=== PATIENT | female | born 1990 | race Caucasian/White ===

== ENCOUNTER 2017-08-19 23:44 | Emergency (ER) | payer OTHER ==
[2017-08-20 00:01] VITALS: BP 98/61; PULSE 76; RESP 14; TEMP 98.5; O2SAT 97
--- NOTE | 2017-08-20 00:42 | C.PDOC ---
History Of Present Illness 27 year old female who is 16 weeks presents to the ER with a complaint of intermittent left lower gum pain for the past 3 days. Patient did not take any pain medication at home since she is unsure which medications are safe for the . Denies gum bleeding or gum discharge. Time Seen by Provider: 08/20/17 00:20 Chief Complaint (Nursing): Dental Pain History Per: Patient History/Exam Limitations: no limitations Onset/Duration Of Symptoms: Days Current Symptoms Are (Timing): Still Present Recent travel outside of the [place]: No Past Medical History Reviewed: Historical Data, Nursing Documentation, Vital Signs Vital Signs: Last Vital Signs Temp 98.5 F 08/19/17 23:58 Pulse 76 08/19/17 23:58 Resp 14 08/19/17 23:58 BP 98/61 L 08/19/17 23:58 Pulse Ox 97 08/20/17 00:43 - Medical History PMH: No Chronic Diseases Surgical History: No Surg Hx Family History: States: Unknown Family Hx - Social History Hx Alcohol Use: No Hx Substance Use: No - Immunization History Hx Tetanus Toxoid Vaccination: No Hx Influenza Vaccination: No Hx Pneumococcal Vaccination: No Review Of Systems Constitutional: Negative for: Fever, Chills ENT: Positive for: Mouth Pain. Negative for: Mouth Swelling, Throat Pain, Throat Swelling Physical Exam - Physical Exam Appears: Non-toxic, No Acute Distress Skin: Normal Color, Warm, Dry Head: Atraumatic, Normacephalic Oral Mucosa: Moist Lips: Normal Appearing Teeth: Other (Impacted left lower posterior molar with caries) Gingiva: No Erythema, No Ulceration, Swelling (Mild around left lower posterior molar), No Bleeding Throat: Normal, No Erythema Neck: Normal, Supple Neurological/Psych: Oriented x3, Normal Speech, Normal Cognition ED Course And Treatment O2 Sat by Pulse Oximetry: 97 (Room air) Pulse Ox Interpretation: Normal Progress Note: Tylenol administered. First dose of amoxicillin administered in the ER, patient given Rx for amoxicillin, advised to complete antibiotic treatment and follow up with dentist. Disposition Counseled Patient/Family Regarding: Diagnosis, Need For Followup, Rx Given - Disposition Referrals: dental, dental [Other] Disposition: HOME/ ROUTINE Disposition Time: 00:40 Condition: STABLE Additional Instructions: Please follow up with Dentist Take meds as directed ( Take tylenol extra strength up 1000 mg every 4hrs as needed for pain) Prescriptions: Amoxicillin 500 mg PO TID #20 tab Instructions: Dental Caries (ED), Toothache (ED) Forms: [facility] (Malay) - Clinical Impression Clinical Impression: Dental caries, Impacted molar - Scribe Statement The provider has reviewed the documentation as recorded by the Scribe Herbie Duggan All medical record entries made by the Scribe were at my direction and personally dictated by me. I have reviewed the chart and agree that the record accurately reflects my personal performance of the history, physical exam, medical decision making, and the department course for this patient. I have also personally directed, reviewed, and agree with the discharge instructions and disposition.
== END 2017-08-20 01:00 | disposition home or self-care (01) ==
LOC: C.ER 23:44
DX: K02.9 Dental caries, unspecified (principal); K01.1 Impacted teeth

== ENCOUNTER 2018-04-17 10:45 | Emergency (ER) | payer OTHER ==
[2018-04-17 10:51] VITALS: BP 177/77; PULSE 79; TEMP 98.9; O2SAT 97
--- NOTE | 2018-04-17 11:47 | C.PDOC ---
History Of Present Illness 28 year old female 2 months post presents to the ED c/o pain and swelling to her right thumb. Patient reports she is used to crack her fingers, did that yesterday and this morning she woke up with pain and noticed some swelling to her right thumb. Patient denies injury, fall, weakness, numbness. Time Seen by Provider: 04/17/18 10:52 Chief Complaint (Nursing): Finger,Hand,&Wrist History Per: Patient History/Exam Limitations: no limitations Onset/Duration Of Symptoms: Days (1) Current Symptoms Are (Timing): Still Present Quality: "Pain" Exacerbating Factor(s): Movement Recent travel outside of the [place]: No Additional History Per: Patient Past Medical History Reviewed: Historical Data, Nursing Documentation, Vital Signs Vital Signs: Last Vital Signs Temp 98.9 F 04/17/18 10:49 Pulse 79 04/17/18 10:49 Resp 18 04/17/18 10:49 BP 177/77 H 04/17/18 10:49 Pulse Ox 97 04/17/18 11:52 - Medical History PMH: No Chronic Diseases Surgical History: No Surg Hx Family History: States: Unknown Family Hx - Social History Hx Alcohol Use: No Hx Substance Use: No - Immunization History Hx Tetanus Toxoid Vaccination: No Hx Influenza Vaccination: No Hx Pneumococcal Vaccination: No Review Of Systems Constitutional: Negative for: Fever, Chills Cardiovascular: Negative for: Chest Pain Respiratory: Negative for: Shortness of Breath Musculoskeletal: Positive for: Hand Pain Skin: Negative for: Rash Neurological: Negative for: Weakness, Numbness Physical Exam - Physical Exam Appears: Non-toxic, No Acute Distress Skin: Normal Color, Warm, Dry Head: Atraumatic, Normacephalic Eye(s): bilateral: Normal Inspection Neck: Normal ROM, Supple Extremity: No Normal ROM (decreased to the right thumb due to pain. other digits normal ROM), Tenderness (right 1st digit), Capillary Refill (< 2 seconds) , Swelling (entire 1st right digit. bruising noted) Pulses: Left Radial: Normal, Right Radial: Normal Neurological/Psych: Oriented x3, Normal Speech Gait: Steady ED Course And Treatment O2 Sat by Pulse Oximetry: 97 (ON RA) Pulse Ox Interpretation: Normal Medical Decision Making Medical Decision Making: Impression: right thumb pain and swelling Plan: * Right hand X-ray * Tylenol 975 mg PO * Motrin 600 mg PO Disposition - Disposition Referrals: [facility] [Outside] Imani Lauren MD [Staff Provider] - Disposition: HOME/ ROUTINE Disposition Time: 11:56 Condition: STABLE Additional Instructions: Take Motrin and Tylenol for pain. Ice your finger 3 times a day. Follow up with your doctor or our clinic and the hand specialist if symptoms do not improve. Instructions: Finger Sprain (DC) Forms: [facility] (Nigerian), General Discharge Instructions - Clinical Impression Clinical Impression: Sprain, finger - Scribe Statement The provider has reviewed the documentation as recorded by the Scribe Alonzo Hendrix All medical record entries made by the Scribe were at my direction and personally dictated by me. I have reviewed the chart and agree that the record accurately reflects my personal performance of the history, physical exam, medical decision making, and the department course for this patient. I have also personally directed, reviewed, and agree with the discharge instructions and disposition.
[2018-04-17 12:08] VITALS: RESP 16
--- NOTE | 2018-04-17 14:56 | RAD ---
PROCEDURE: Right Thumb radiographs. HISTORY: swelling , pain to thumb, COMPARISON: None. TECHNIQUE: AP radiograph of the right hand, as well as spot oblique and lateral images of thumb were obtained. FINDINGS: RIGHT THUMB: Normal right thumb, without fracture or focal lesion. Remainder of the right hand (as seen on the AP view) grossly unremarkable. JOINTS: Normal. SOFT TISSUES: Normal. OTHER FINDINGS: None. IMPRESSION: No evidence of acute fracture or dislocation.
== END 2018-04-17 12:07 | disposition home or self-care (01) ==
LOC: C.ER 10:45
DX: S63.601A Unspecified sprain of right thumb, initial encounter (principal); X50.0XXA Overexertion from strenuous movement or load, initial encounter; Y92.89 Other specified places as the place of occurrence of the external cause